=== PATIENT | male | born 1985 | race Caucasian/White ===

== ENCOUNTER 2018-05-31 17:46 | Inpatient (IN) | payer OTHER ==
[~2018-05-31] VITALS: Ht 198.1 cm; Wt 86.3 kg
--- NOTE | ~2018-05-31 | EKG ---
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
[~2018-05-31 17:46] MED LIST: ATARAX,VISTARIL50 MG PO; CARBIDOPA/LEVOD1 TA1 PO; ZOFRAN 4 MG ED2 TAB PO
--- NOTE | 2018-05-31 18:20 | NUR ---
Time: 1819 A 33 year old FEMALE admitted to under services of SHAHZAD DIAZ DO, Pt. arrived via ambulatory from [place]. Chief complaint: OPIATE WITHDRAWAL. JASON MADRIGAL
--- NOTE | 2018-05-31 18:26 | NUR ---
PATIENT MEETS [facility], CINA=16. PATIENT IS GOING TO FOLLOW UP WITH [facility] FOR HIS AFTERCARE PLAN. J CARLOS JEAN-BAPTISTE B.A. MANAGED CARE PROVIDER
[2018-05-31 18:37] VITALS: BP 136/88
--- NOTE | 2018-05-31 18:39 | NUR ---
PT DENIES TAKING ANY HOME MEDS
[2018-05-31 18:45] LABS: BASO % 0.1 % (0.0-1.0); EOS % 0.2 % (1.0-4.0); HEMOGLOBIN 11.2 g/dl (14.0-18.0); LYMPH # 2.2 10*3/uL (1.3-4.4); LYMPH % 22.2 % (27.0-41.0); MEAN CELL VOLUME 92.9 fl (80.0-94.0); MEAN CORPUSCULAR HGB 30.6 pg (27.0-31.0); MEAN CORPUSCULAR HGB CONC 32.9 g/dl (33.0-37.0); MEAN PLATELET VOLUME 8.9 fl (9.6-12.3); MONO # 1.1 10*3/uL (0.1-1.0); MONO % 11.6 % (3.0-9.0); NEUT # 6.5 10*3/uL (2.3-7.9); NEUT % 65.7 % (47.0-73.0); PLATELET COUNT AUTOMATED 252 10*3/uL (130-400); RED BLOOD COUNT 3.66 10*6/uL (4.50-5.90); RED CELL DISTRI WIDTH 14.5 % (0-14.5); WHITE BLOOD COUNT 9.8 10*3/uL (4.8-10.8)
[2018-05-31 19:09] LABS: ALBUMIN 3.7 gm/dl (3.1-4.5); ALKALINE PHOSPHATASE 63 U/L (45-117); BUN 29 mg/dl (7-24); CHLORIDE 108 mmol/L (98-107); CREATININE 1.78 mg/dL (0.70-1.30); POTASSIUM 3.9 mmol/L (3.5-5.1); SGOT/AST 59 IU/L (3-35); SGPT/ALT 89 U/L (12-78); SODIUM 142 mmol/L (136-145); TOTAL PROTEIN 7.6 gm/dL (6.4-8.2)
[2018-05-31 19:14] LABS: ETHYL ALCOHOL < 3.0 mg/dl (<3)
[2018-05-31 20:00] VITALS: BP 143/88
[2018-05-31 20:10] LABS: BILIRUBIN NEGATIVE (NEGATIVE); BLOOD NEGATIVE (NEGATIVE); CLARITY CLEAR (CLEAR); COLOR YELLOW (YELLOW); GLUCOSE NEGATIVE (NEGATIVE); KETONE NEGATIVE (NEGATIVE); LEUKO ESTERASE NEGATIVE (NEGATIVE); NITRITE NEGATIVE (NEGATIVE); PH 5.5 (5.0-9.0); SPECIFIC GRAVITY >= 1.030 (1.005-1.030); UROBILINOGEN 0.2 E.U./dl (0.2-1.0)
[2018-05-31 20:15] LABS: BACTERIA 1+; FINE GRANULAR CAST 0-2
[2018-05-31 20:18] LABS: URINE AMPHETAMINES > 1000 (1000ng/ml); URINE BARBITURATES < 200 (200ng/ml); URINE BENZODIAZEPINES < 200 (200ng/ml); URINE CANNABINOIDS (THC) < 50 (50ng/ml); URINE COCAINE < 300 (300ng/ml); URINE METHADONE < 300 (300ng/ml); URINE OPIATES > 300 (300ng/ml); URINE PHENCYCLIDINE < 25 (25ng/ml)
--- NOTE | 2018-05-31 20:49 | NUR ---
PATIENT AT THIS TIME STATED THAT HE HAD USED OPIATES AT 8AM AND HAD FORGOTTEN AND THOUGHT THAT IT WAS YESTERDAY. STATED THAT HE WOULD LIKE TO START HIS SUBUTEX TAPER AT 8AM IN THE MORNING IF THAT WOULD BE OK. DR. GARZA NOTIFIED OF THIS AND STATED THAT HE WOULD CHANGE IT
--- NOTE | 2018-05-31 22:05 | NUR ---
REPORT RECIEVED FROM KALYANI CORLEY. PT IS RESTING IN BED WITH NO COMPLAINTS AT THIS TIME. PT APPEARS TO BE SOMEWHAT RESTLESS, BUT IS DENYING ANY ANXIETY OR AGGITATION AT THIS TIME. CALL LIGHT WITHIN REACH, WILL CONTINUE TO MONITOR.
[2018-06-01] VITALS: BP 129/80
[2018-06-01 07:10] LABS: ALBUMIN 3.2 gm/dl (3.1-4.5); ALKALINE PHOSPHATASE 58 U/L (45-117); BUN 24 mg/dl (7-24); CHLORIDE 105 mmol/L (98-107); CREATININE 1.32 mg/dL (0.70-1.30); POTASSIUM 3.5 mmol/L (3.5-5.1); SGOT/AST 54 IU/L (3-35); SGPT/ALT 79 U/L (12-78); SODIUM 141 mmol/L (136-145); TOTAL PROTEIN 6.7 gm/dL (6.4-8.2)
[2018-06-01 08:00] VITALS: BP 136/87
[2018-06-01 12:00] VITALS: BP 129/78
--- NOTE | 2018-06-01 13:40 | NUR ---
IV started right hand with #22 angiocath after 1 attempts. The IV site was prepped with Chloraprep. Heparin lock attached. Sterile dressing applied. Patient tolerated precedure well. Procedure performed according to [facility] policy & procedure. NATI PACE
--- NOTE | 2018-06-01 15:32 | NUR ---
[facility] STAFF SENT PATIENT'S ASSESSMENT TO [facility] FOR RESIDENTIAL TREATMENT. [place] STAFF WILL FOLLOW UP WITH PATIENT CONCERNING HIS AFTERCARE PLAN. J CARLOS JEAN-BAPTISTE B.A. WOOD FORM BUILDER
[2018-06-01 16:00] VITALS: BP 136/56
[2018-06-01 20:00] VITALS: BP 137/82
[2018-06-02] VITALS: BP 129/70
[2018-06-02 08:00] VITALS: BP 129/82
--- NOTE | 2018-06-02 10:41 | NUR ---
PT GIVEN TYLENOL 500 MG PO AT THIS TIME FOR C/O HEADACHE. IV CATHETER REMOVED AT THIS TIME IN ORDER FOR PT TO SHOWER.
--- NOTE | 2018-06-02 11:41 | NUR ---
TYLENOL EFFECTIVE PER PT.
--- NOTE | 2018-06-02 14:08 | NUR ---
PATIENT IS SCHEDULED TO GO TO [facility] UPON DISCHARGE. [place] STAFF WILL FOLLOW UP WITH PATIENT CONCERNING HIS AFTERCARE PLAN. J CARLOS JEAN-BAPTISTE B.A. FUNERAL LOCATION MANAGER
[2018-06-02 16:00] VITALS: BP 125/64
--- NOTE | 2018-06-02 18:00 | NUR ---
PT UP WALKING THROUGHOUT HALLS, NO S/S OF DISTRESS. PLEASANT MOOD.
[2018-06-03] VITALS: BP 139/79
[2018-06-03 07:17] LABS: BUN 21 mg/dl (7-24); CHLORIDE 106 mmol/L (98-107); SODIUM 141 mmol/L (136-145)
[2018-06-03 08:00] VITALS: BP 114/60
--- NOTE | 2018-06-03 11:13 | NUR ---
PATIENT IS SCHEDULED TO GO TO [facility] ON May UPON DISCHARGE. PATIENT REPORTED THAT HIS FATHER CAN PROVIDE TRANSPORTATION. PATIENT AGREES AND UNDERSTAND HIS AFTERCARE PLAN. J CARLOS JEAN-BAPTISTE B.A. HEAD TRANSFER CLERK
--- NOTE | 2018-06-03 12:08 | NUR ---
PT GIVEN NOON DOSAGE OF SUBUTEX AT THIS TIME. PT DENIES HAVING ANY WITHDRAWAL S/S AT THIS TIME. DENIES NEEDING ANY PRN MEDICATION. PT SITTING UP IN BED, WATCHING TV, PLEASANT MOOD. CALL LIGHT IN REACH.
[2018-06-03] MEDS ORDERED: ATARAX,VISTARIL50 MG PO (14:55)
[2018-06-03 16:00] VITALS: BP 120/74
--- NOTE | 2018-06-03 16:00 | NUR ---
DISCHARGE ORDER IS IN FOR PT TO BE D/C'D AFTER LAST DOSAGE OF SUBUTEX. PT STATES THAT HE IS READY FOR D/C AT THIS TIME. PHYSICIAN CALLED AND [facility] NOTIFIED. DAKOTAH FROM [facility] COMES UP TO FLOOR TO SPEAK WITH PATIENT REGARDING DISCHARGE AND PLACEMENT TO [facility] UPON D/C. IT IS EXPLAINED TO PT THAT HE MUST FINISH SUBUTEX TAPER BEFORE HIS D/C OR HE MAY LOSE BED AT [facility]. PT AND [facility] DECIDE THAT PT WILL WAIT UNTIL AM OF 06/04 FOR DISCHARGE SO THAT HE CAN GO FROM HERE AND STRAIGHT TO [facility].
--- NOTE | 2018-06-03 17:16 | NUR ---
PT GIVEN VISTARIL AT THIS TIME FOR ANXIETY/AGITATION. WILL CONTINUE TO MONITOR. CALL LIGHT IN REACH.
--- NOTE | 2018-06-03 18:16 | NUR ---
VISTARIL EFFECTIVE PER PT.
[2018-06-04] VITALS: BP 147/75
--- NOTE | 2018-06-04 09:18 | NUR ---
Discharge instructions reviewed with patient/family. Patient receptive and verbalizes understanding. Follow-up care arranged. Written instructions given to patient/family. MARKELL LAGUNA
== END 2018-06-04 09:18 | disposition home or self-care (01) | DRG 896 ==
LOC: 4E 17:46 → 5E 18:08
PROVIDERS: Student in an Organized Health Care Education/Training Program; ADMIT Internal Medicine
DX: F11.23 Opioid dependence with withdrawal (principal); N17.0 Acute kidney failure with tubular necrosis; D64.9 Anemia, unspecified; F41.9 Anxiety disorder, unspecified; E87.8 Other disorders of electrolyte and fluid balance, not elsewhere classified; F15.10 Other stimulant abuse, uncomplicated; R74.0 Nonspecific elevation of levels of transaminase and lactic acid dehydrogenase [LDH]; F17.200 Nicotine dependence, unspecified, uncomplicated; R00.0 Tachycardia, unspecified; Z79.899 Other long term (current) drug therapy; Z71.6 Tobacco abuse counseling; Z80.3 Family history of malignant neoplasm of breast